=== PATIENT | female | born 1995 | race American Indian/Alaskan Native ===

== ENCOUNTER 2019-01-27 20:41 | Emergency (ER) | payer OTHER ==
[2019-01-27 20:47] VITALS: BP 133/69
--- NOTE | 2019-01-27 21:29 | Emergency Department Report ---
Blank Doc - Documentation Documentation: This is a 24-year-old female that presents with pelvic pain with n/v. HX of e ndometriosis. Stated is on her menstrual cycle now. This initial assessment/diagnostic orders/clinical plan/treatment(s) is/are subject to change based on patient's health status, clinical progression and re- assessment by fellow clinical providers in the ED. Further treatment and workup at subsequent clinical providers discretion. Patient/guardians urged not to elope from the ED as their condition may be serious if not clinically assessed and managed. Initial orders include: 1- Patient sent to [facility] for further evaluation and treatment 2- labs 3- UA
[2019-01-27 22:08] LABS: Hematocrit 39.3 % (30.3-42.9); Mean Corpuscular HGB Conc 36 % (30-34); Mean Corpuscular Volume 83 fl (79-97); Platelet Count 220 K/mm3 (140-440); Red Blood Count 4.76 M/mm3 (3.65-5.03); Red Cell Distribution Width 15.7 % (13.2-15.2)
[2019-01-27 22:32] LABS: Alanine Aminotransferase 8 units/L (7-56); Albumin 5.1 g/dL (3.9-5); BUN/Creatinine Ratio 13; Blood Urea Nitrogen 8 mg/dL (7-17); Calcium 10.1 mg/dL (8.4-10.2); Hemolysis Index 1
[2019-01-27 22:46] LABS: Basophils % (Manual) 0 % (0.0-1.8); Eosinophils % (Manual) 0 % (0.0-4.3); Total Cells Counted 100
[2019-01-27 22:47] LABS: Anisocytosis 1+; Ovalocytes 1+
[2019-01-28 00:09] LABS: Bilirubin,Urine NEG (Negative); Blood,Urine SM (Negative); Color,Urine Yellow (Yellow); Mucus,Urine 1+ /HPF; Urobilinogen,Urine < 2.0 mg/dL (<2.0)
[2019-01-28] MEDS ORDERED: ULTRAM PO ONE (00:14)
[2019-01-28] MEDS ORDERED: REGLAN PO ONE (00:15)
--- NOTE | 2019-01-28 00:23 | Emergency Department Report ---
ED Female HPI - General Chief complaint: Abdominal Pain Stated complaint: INDOMETROSIS ABD PAIN VOMITTING Time Seen by Provider: 01/27/19 21:28 Source: patient Mode of arrival: Ambulatory Limitations: No Limitations - History of Present Illness Initial comments: This is a 24-year-old female with a history of endometriosis who presents to ED complaining of pelvic pain that started today with some nausea and vomiting. Patient states that she has not been able to see a HAND THERAPIST due to insurance lapse in now. Patient states she is at endometriosis for the past 2 years. She states last menstrual period as yesterday and currently on her cycle. Patient denies vaginal pain, bleeding, discharge, dysuria, fever, diarrhea - Related Data Previous Rx's Medication Instructions Recorded Last Taken Type Ibuprofen [Motrin] 800 mg PO Q8HR #30 tablet 01/28/19 Unknown Rx traMADol [Ultram 50 MG tab] 50 mg PO Q6H #15 tablet 01/28/19 Unknown Rx Allergies Allergy/AdvReac Type Severity Reaction Status Date / Time No Known Allergies Allergy Unverified 01/27/19 20:45 ED Review of Systems ROS: Stated complaint: INDOMETROSIS ABD PAIN VOMITTING Other details as noted in HPI Comment: All other systems reviewed and negative ED Past Medical Hx - Past Medical History Previous Medical History?: Yes Additional medical history: Endometriosis - Surgical History Past Surgical History?: Yes Hx Cholecystectomy: Yes - Social History Smoking Status: Current Some Day Smoker Substance Use Type: Alcohol, Marijuana - Medications Home Medications: Home Medications Medication Instructions Recorded Confirmed Last Taken Type Ibuprofen [Motrin] 800 mg PO Q8HR #30 tablet 01/28/19 Unknown Rx traMADol [Ultram 50 MG tab] 50 mg PO Q6H #15 tablet 01/28/19 Unknown Rx ED Physical Exam - General Limitations: No Limitations General appearance: alert, in no apparent distress - Head Head exam: Present: atraumatic, normocephalic - Eye Eye exam: Present: normal appearance - ENT ENT exam: Present: mucous membranes moist - Neck Neck exam: Present: normal inspection - Respiratory Respiratory exam: Present: normal lung sounds bilaterally. Absent: respiratory distress - Cardiovascular Cardiovascular Exam: Present: regular rate, normal rhythm. Absent: systolic murmur, diastolic murmur, rubs, gallop - GI/Abdominal GI/Abdominal exam: Present: soft, normal bowel sounds. Absent: distended, tenderness, guarding, rebound, rigid, mass - Extremities Exam Extremities exam: Present: normal inspection - Back Exam Back exam: Present: normal inspection - Neurological Exam Neurological exam: Present: alert, oriented X3 - Psychiatric Psychiatric exam: Present: normal affect, normal mood - Skin Skin exam: Present: warm, dry, intact, normal color. Absent: rash ED Course Vital Signs 01/27/19 01/27/19 01/28/19 20:47 21:28 00:42 Temperature 98.6 F 98.6 F Pulse Rate 79 70 Respiratory 18 18 18 Rate Blood Pressure 133/69 133/69 O2 Sat by Pulse 98 97 Oximetry ED Medical Decision Making - Lab Data Result diagrams: 01/27/19 21:47 01/27/19 21:47 - Medical Decision Making 24-year-old female presents with pelvic pain secondary to endometriosis Patient received Toradol and Zofran in the ED. she also received 1 L of normal saline. Discussed the patient she will need to follow-up with HAND THERAPIST. Discussed pain control and nausea relief. Vital signs are normal. Patient is sent home on pain medication and follow-up with HAND THERAPIST. Discussed the patient that endometriosis is does cause pelvic pain and ultimately management the laparoscopy. He was not to vomit in the ED. Critical care attestation.: If time is entered above; I have spent that time in minutes in the direct care of this critically ill patient, excluding procedure time. ED Disposition Clinical Impression: Pelvic pain, Endometriosis Disposition: -01 TO HOME OR SELFCARE Is pt being admited?: No Does the pt Need Aspirin: No Condition: Stable Instructions: Endometriosis (ED), Abdominal Pain (ED) Additional Instructions: Make sure to follow up with the primary care physician as discussed. Take all your medications as you've been prescribed. If you have any worsening symptoms or develop new symptoms please return to ED immediately. Prescriptions: Ibuprofen [Motrin] 800 mg PO Q8HR #30 tablet traMADol [Ultram 50 MG tab] 50 mg PO Q6H #15 tablet Referrals: ANTONIO AGOSTO MD [Primary Care Provider] - 3-5 Days MARVIN CIFUENTES MD [Referring] - 3-5 Days [facility] [Outside] - 3-5 Days [facility] [Outside] - 3-5 Days Forms: Work/School Release Form(ED) Time of Disposition: 00:46
[2019-01-28] MEDS ORDERED: TORADOL ONE (00:36)
[2019-01-28] MEDS ORDERED: ZOFRAN ONE (00:36)
[2019-01-28] MEDS ORDERED: ZOFRAN IM ONE (00:38)
[2019-01-28] MEDS ORDERED: TORADOL IM ONE (00:39)
[2019-01-28] MEDS ORDERED: NACL 0.9% 1000 ML 1,000 ML ONE (01:16)
[2019-01-28] MEDS ORDERED: ZOFRAN IV ONE (01:17)
[2019-01-28] MEDS ORDERED: NACL 0.9% 1000 ML 1,000 ML IV ONE (01:17)
== END 2019-01-28 02:55 | disposition home or self-care (01) ==
LOC: ED 20:41
DX: N80.9 Endometriosis, unspecified (principal); F17.200 Nicotine dependence, unspecified, uncomplicated; F12.10 Cannabis abuse, uncomplicated
CPT/HCPCS: 36415; 80053; 81001; 83690; 84703; 85007; 85025; 96361; 96372; 96374; 99283; J1885; J2405; J7030